=== PATIENT | male | born 1950 | race Caucasian/White ===

== ENCOUNTER 2020-07-11 06:14 | Emergency (ER) | payer MEDICARE, OTHER ==
[2020-07-11] MEDS ORDERED: Ketorolac Tromethamine 30 MG/ML VIAL ONE (07:44)
[2020-07-11] MEDS ORDERED: Acetaminophen 325 MG TAB ONE (07:44)
[2020-07-11 08:01] LABS: Hemoglobin 14.9 g/dL (14.0-18.0); Mean Corpuscular HGB CONC 31.9 g/dL (32.0-36.0); Mean Corpuscular Hemoglobin 30.4 pg (27.0-31.0); Mean Corpuscular Volume 95.2 fL (78.0-98.0); Mean Platelet Volume 9.7 fL (7.4-10.4); Platelet Count 216 thou/uL (130-400); Red Blood Cell (RBC) Count 4.91 mill/uL (4.70-6.10); White Blood Cell (WBC) Count 11.3 thou/uL (4.8-10.8)
[2020-07-11 08:16] LABS: Albumin 4.1 g/dL (3.4-4.8)
[2020-07-11 08:17] LABS: Chloride 101 mmol/L (98-107); Potassium 4.2 mmol/L (3.5-5.1); Sodium 137 mmol/L (136-145)
[2020-07-11 08:18] LABS: Calcium 9.3 mg/dL (7.8-10.44); Glucose 99 mg/dL (80-115)
[2020-07-11 08:19] LABS: Globulin 3.2 g/dL (2.4-3.5); Protein, Total 7.3 g/dL (5.8-8.1)
[2020-07-11 08:20] LABS: Anion Gap 13 mmol/L (10-20); Bilirubin, Total 0.3 mg/dL (0.2-1.2); Carbon Dioxide 27 mmol/L (23-31)
[2020-07-11 08:21] LABS: Alkaline Phosphatase 65 U/L (40-110)
[2020-07-11 08:22] LABS: Calc. Creatinine Clearance 0 mL/min (70-130)
[2020-07-11 08:23] LABS: AST (SGOT) 16 U/L (5-34); BUN (Urea Nitrogen) 16 mg/dL (8.4-25.7)
[2020-07-11 08:24] LABS: ALT (SGPT) 21 U/L (8-55)
[2020-07-11 12:10] LABS: Band 17 % (5-11); Eosinophils 3 % (0-10); Lymphocytes 5 % (21-51); Monocytes 12 % (0-10); Neutrophil 59 % (42-75); Reactive Lymphocytes 4 % (0-10)
[2020-07-11 12:11] LABS: MDiff Complete? YES
[2020-07-11 18:02] LABS: SARS-CoV-2 MS2 Positive; SARS-CoV-2 N Gene Negative; SARS-CoV-2 S Gene Negative; SARS-CoV-2 by NAA Not Detected (NotDetected); SARS-CoV-2 orf1ab Negative
== END 2020-07-11 09:26 | disposition home or self-care (01) ==
LOC: ERS 06:14
DX: L03.211 Cellulitis of face (principal); Z20.828 Contact with and (suspected) exposure to other viral communicable diseases; R59.0 Localized enlarged lymph nodes; D72.829 Elevated white blood cell count, unspecified; L53.9 Erythematous condition, unspecified; I10 Essential (primary) hypertension; Z87.891 Personal history of nicotine dependence; Z79.899 Other long term (current) drug therapy
CPT/HCPCS: 80053; 85025; U0003; 87635; 96374; J1885

== ENCOUNTER 2020-09-11 23:55 | Emergency (ER) | payer MEDICARE, OTHER ==
[2020-09-12] MEDS ORDERED: Mag-Al 1200 mg/1200 mg/30 ML UDCUP ONE (00:19)
[2020-09-12] MEDS ORDERED: Aspirin 325 MG TAB ONE (00:19)
[2020-09-12] MEDS ORDERED: Lidocaine Viscous Sol 2% 15 ml UD Cup ONE (00:19)
[2020-09-12 00:46] LABS: #Basophils 0.1 thou/uL (0.0-0.2); #Eosinphils 0.3 thou/uL (0.0-0.7); #Lymphocytes 1.6 thou/uL (1.20-3.40); #Monocytes 0.8 thou/uL (0.11-0.59); #Neutrophils 7.3 thou/uL (1.40-6.50); %Basophils 1.1 % (0.0-1.0); %Lymphocytes 15.3 % (21.0-51.0); %Monocytes 8.3 % (0.0-10.0); %Neutrophils 72.3 % (42.0-75.0); Hemoglobin 15.4 g/dL (14.0-18.0); Mean Corpuscular HGB CONC 33.4 g/dL (32.0-36.0); Mean Corpuscular Hemoglobin 31.5 pg (27.0-31.0); Mean Corpuscular Volume 94.2 fL (78.0-98.0); Mean Platelet Volume 9.5 fL (7.4-10.4); Platelet Count 288 thou/uL (130-400); RBC Distribution Width 12.6 % (11.5-14.5); Red Blood Cell (RBC) Count 4.89 mill/uL (4.70-6.10); White Blood Cell (WBC) Count 10.2 thou/uL (4.8-10.8)
[2020-09-12 01:07] LABS: ALT (SGPT) 29 U/L (8-55); AST (SGOT) 20 U/L (5-34); Albumin 4.5 g/dL (3.4-4.8); Alkaline Phosphatase 89 U/L (40-110); Anion Gap 14 mmol/L (10-20); BUN (Urea Nitrogen) 14 mg/dL (8.4-25.7); Bilirubin, Total 0.3 mg/dL (0.2-1.2); Calc. Creatinine Clearance 0 mL/min (70-130); Calcium 9.8 mg/dL (7.8-10.44); Carbon Dioxide 25 mmol/L (23-31); Chloride 105 mmol/L (98-107); Globulin 2.9 g/dL (2.4-3.5); Glucose 108 mg/dL (80-115); Lipase 11 U/L (8-78); Potassium 4.2 mmol/L (3.5-5.1); Protein, Total 7.4 g/dL (5.8-8.1); Sodium 140 mmol/L (136-145)
[2020-09-12] MEDS ORDERED: Nitroglycerin 2% Ointment 1 INCH/1 GM Packet ONE (02:00)
--- NOTE | 2020-09-12 07:56 | RAD ---
PORTABLE CHEST: INDICATION: Chest pain. FINDINGS: No evidence of infiltrate. Heart and mediastinum unremarkable. IMPRESSION: No acute finding. POS: [id number]
== END 2020-09-12 04:08 | disposition home or self-care (01) ==
LOC: ERS 23:55
DX: R07.9 Chest pain, unspecified (principal); I10 Essential (primary) hypertension; Z79.899 Other long term (current) drug therapy; Z87.891 Personal history of nicotine dependence
CPT/HCPCS: 36415; 71045; 80053; 83690; 84484; 85025; 93005

== ENCOUNTER 2022-12-28 12:00 | Outpatient (CLI) | payer MEDICARE, OTHER ==
[~2022-12-28 12:00] MED LIST: Iopamidol 370 76% 100 ML VIAL ONE
== END 2022-12-28 12:01 | disposition home or self-care (01) ==
LOC: CT 12:00
PROVIDERS: ATTEND Nurse Practitioner Family
DX: I71.21 Aneurysm of the ascending aorta, without rupture (principal); K80.20 Calculus of gallbladder without cholecystitis without obstruction
CPT/HCPCS: 74175; 82565; Q9967

== ENCOUNTER 2023-07-02 08:15 | Outpatient (CLI) | payer MEDICARE, OTHER ==
[2023-07-02] MEDS ORDERED: Iopamidol 370 76% 100 ML VIAL ONE (10:51)
== END 2023-07-02 08:16 | disposition home or self-care (01) ==
LOC: CT 08:15
PROVIDERS: ATTEND Internal Medicine Cardiovascular Disease
DX: E78.00 Pure hypercholesterolemia, unspecified (principal); K80.20 Calculus of gallbladder without cholecystitis without obstruction; K44.9 Diaphragmatic hernia without obstruction or gangrene; R22.2 Localized swelling, mass and lump, trunk
CPT/HCPCS: 36415; 71275; 80053; 80061; 82565

== ENCOUNTER 2023-09-04 09:28 | Outpatient (CLI) | payer MEDICARE, OTHER ==
[2023-09-04] MEDS ORDERED: Magnevist 469MG/ML 20 ML VIAL ONE (11:05)
== END 2023-09-04 09:29 | disposition home or self-care (01) ==
LOC: MRI 09:28
PROVIDERS: ATTEND Internal Medicine Cardiovascular Disease
DX: R91.8 Other nonspecific abnormal finding of lung field (principal); D17.1 Benign lipomatous neoplasm of skin and subcutaneous tissue of trunk
CPT/HCPCS: 71552; A9579